=== PATIENT | female | born 1995 | race Hispanic/Latino ===

== ENCOUNTER 2018-02-12 07:31 | Outpatient (CLI) | payer OTHER | END 2018-02-12 07:32 | disposition home or self-care (01) | LOC: BICULT 07:31 | PROVIDERS: ATTEND Internal Medicine | DX: N63.10 Unspecified lump in the right breast, unspecified quadrant (principal) ==

== ENCOUNTER 2018-09-03 10:43 | Outpatient (CLI) | payer OTHER ==
--- NOTE | 2018-09-03 12:20 | ULT ---
RIGHT BREAST ULTRASOUND: Date: 09/03/18 HISTORY: Probably benign lesion seen in the right breast at the 9-10 o'clock position on prior ultrasound. Thi s most likely represents a fibroadenoma. COMPARISON: 02/12/18. TECHNIQUE: Multiplanar Rodgers scale and color Doppler images were obtained in a targeted ultrasound of the right b reast. FINDINGS: At the 9-10 o'clock position of the right breast, at the area of palpable abnormality, there is a wel l circumscribed hypoechoic mass measuring 1.7 cm in greatest dimension. This is stable compared to th e prior exam and demonstrates increased through-transmission. This most likely represents a fibroaden yoseph. IMPRESSION: BIRADS Category 3 - Probably benign finding. A 6 month follow-up ultrasound is recommended to ensure continued stability. The facility will notify patient of need for additional imaging services. POS: JUSTINO
== END 2018-09-03 10:44 | disposition home or self-care (01) ==
LOC: BICULT 10:43
PROVIDERS: ATTEND Internal Medicine
DX: D24.1 Benign neoplasm of right breast (principal)

== ENCOUNTER 2019-03-23 09:37 | Outpatient (CLI) | payer OTHER ==
--- NOTE | 2019-03-23 10:19 | ULT ---
LIMITED RIGHT BREAST ULTRASOUND: HISTORY: Follow up right breast mass. COMPARISON: 02/12/2018 09/03/2018 FINDINGS: Again noted is a slightly lobulated, hypoechoic, solid mass in the 9 o'clock position, 1 cm from the nipple, measuring 1.2 x 1.4 x 1.7 cm, overall stable. IMPRESSION: Stable solid mass, right breast, 9 o'clock, 1 cm from the nipple, evidence for a benign fibroadenoma. One year follow-up ultrasound is recommended. If this mass remains stable at that time that would be two years from the initial evaluation and the patient would then need no additional followup. BI-RADS Category 2-Benign findings. POS: OFF
== END 2019-03-23 09:38 | disposition home or self-care (01) ==
LOC: BICULT 09:37
PROVIDERS: ATTEND Internal Medicine
DX: D24.1 Benign neoplasm of right breast (principal)

== ENCOUNTER 2020-03-23 15:39 | Outpatient (CLI) | payer OTHER ==
--- NOTE | 2020-03-23 16:41 | ULT ---
LIMITED RIGHT BREAST ULTRASOUND: 03/23/20 HISTORY: Follow-up right breast mass. FINDINGS: Comparison made with the exams of 03/23/19, 09/03/18 and 02/12/18. The slightly lobulated hyperechoic nonshadowing solid mass at the 9 o'clock position of the right tommie ast, 1 cm from the nipple is again seen measuring 1.4 x 1.1 x 1.1 cm. About 4 cm from the nipple at the 9 o'clock position of the right breast is a similar 8 x 10 mm solid mass. Both of these are most likely consistent with fibroadenomas. IMPRESSION: BIRADS 2: Benign Finding(s) Routine annual screening mammography (for women over age 40). Return to age appropriate mammographic screening based on risk factors. POS: OFF
== END 2020-03-23 15:40 | disposition home or self-care (01) ==
LOC: BICULT 15:39
PROVIDERS: ATTEND Internal Medicine
DX: D24.1 Benign neoplasm of right breast (principal)

== ENCOUNTER 2023-04-01 10:43 | Outpatient (CLI) | payer BC | END 2023-04-01 10:44 | disposition home or self-care (01) | LOC: BICULT 10:43 | PROVIDERS: ATTEND Internal Medicine | DX: N63.11 Unspecified lump in the right breast, upper outer quadrant (principal); N60.01 Solitary cyst of right breast ==